=== PATIENT | female | born 1960 | race Caucasian/White ===

== ENCOUNTER → 2020-02-23 11:55 | Outpatient (CLI) | payer OTHER, MEDICARE, SELFPAY ==
--- NOTE | 2020-02-23 12:30 | CT_ITS ---
STUDY: CT CHEST WITH CONTRAST REASON FOR EXAM: Female, 60 years old. ENDOMETRIA CA. PREVIOUS SMOKER QUIT 6 YEARS AGO. Radiation treatment planning examination. RADIATION DOSAGE (If Supplied By Facility): CTDIvol = ( 14.61 ) mGy, DLP = ( 1468.49 ) mGycm TECHNIQUE: Transaxial imaging was performed following intravenous administration of IV 100ML ISOVUE 300. Individualized dose optimization techniques were used for this CT. COMPARISON: None. FINDINGS: A left-sided portacatheter is seen with the tip in the superior vena cava. There are multiple nodules in the lateral aspect of the right middle lobe and right lower lobe. Several of these nodules have air within them suggestive of possible necrotic metastasis. The largest nodule in the peripheral aspect of the right lower lobe measures 3.1 cm x 3.1 cm. There is also evidence of irregular pleural thickening involving the right hemithorax. Calcified granuloma in the left lower lobe. Normal heart and pericardium. There is a 1.4 cm x 0.9 cm lymph node in the right paratracheal region. Small lymph nodes are seen in the subcarinal region. There is a 2.2 cm x 1.9 cm lymph node in the superior aspect of the right hilum. Small lymph nodes are also seen in the right hilum. Normal enhanced pulmonary arteries. Normal aorta arch and descending thoracic aorta. There are degenerative changes of the thoracic spine. There is no demonstrated abnormality of the visualized upper abdomen. CT/Chest WITH Contrast IMPRESSION: Multiple nodules are seen in the right hemithorax with the several other nodules have been air within them suggestive of possible necrotic metastasis. There is also evidence of nodular pleural thickening in the right hemithorax. Metastatic disease should be ruled out. Mediastinal and right hilar lymphadenopathy. Electronically Signed: Anuj Harris, at 14:50 EDT , Service support ,
[2020-02-23] MEDS: 0.9% Saline Lock 10 ML Syringe IV (12:45)
== END ==
PROVIDERS: PCP Family Medicine; Referring Provider Radiology Radiation Oncology; Visit Provider Radiology Radiation Oncology
DX: C78.1 Secondary malignant neoplasm of mediastinum (principal); C54.1 Malignant neoplasm of endometrium
CPT/HCPCS: 71260; Q9967; A4216